=== PATIENT | male | born 1935 | race African-American/Black ===

== ENCOUNTER 2016-07-29 12:18 | Emergency (ER) | payer OTHER ==
[~2016-07-29] VITALS: Ht 170.2 cm; Wt 95.0 kg
[~2016-07-29 12:18] MED LIST: HYDR-3533 PO; PRED20 PO; ZOCO40TA PO
[2016-07-29 12:52] VITALS: BP 122/88; PULSE 57; RESP 15; TEMP 98.4; O2SAT 97
== END 2016-07-29 13:15 | disposition left against medical advice (07) ==
LOC: NED 12:18
DX: R42 Dizziness and giddiness (principal)
CPT/HCPCS: 99281